=== PATIENT | male | born 1990 | race African-American/Black ===

== ENCOUNTER 2017-03-30 22:03 | Emergency (ER) | payer MEDICAID ==
[~2017-03-30] VITALS: Ht 182.9 cm; Wt 80.0 kg
[2017-03-30 22:33] VITALS: BP 145/100
[2017-03-31] MEDS ORDERED: METOCLOPRAMIDE HCL 10MG TABLET PO ONE (01:00)
== END 2017-03-31 01:51 | disposition home or self-care (01) ==
LOC: ER 03-31 01:10
DX: R09.81 Nasal congestion (principal); R51 Headache; R03.0 Elevated blood-pressure reading, without diagnosis of hypertension; J45.909 Unspecified asthma, uncomplicated; Z87.891 Personal history of nicotine dependence
CPT/HCPCS: 87804; 99284; J8597

== ENCOUNTER 2017-04-07 02:24 | Emergency (ER) | payer MEDICAID ==
[~2017-04-07] VITALS: Ht 182.9 cm; Wt 82.0 kg
[2017-04-07] MEDS ORDERED: HYDROCODONE/ACETAMINOPHEN 5/325MG TABLET PO ONE (06:45)
[2017-04-07] MEDS ORDERED: PHENYLEPHRINE 100MCG/ML 10ML VIAL (CATH LAB) IV PRN (07:45)
[2017-04-07 09:50] VITALS: BP 126/79
== END 2017-04-07 10:18 | disposition home or self-care (01) ==
LOC: ER 03:14
DX: N48.30 Priapism, unspecified (principal); F12.90 Cannabis use, unspecified, uncomplicated
CPT/HCPCS: 54220; 99284

== ENCOUNTER 2019-07-02 09:52 | Emergency (ER) | payer MEDICAID ==
[~2019-07-02] VITALS: Ht 180.3 cm; Wt 80.0 kg
[2019-07-02] MEDS ORDERED: ALBUTEROL 6.7GM HFA INHALER ORI PRN (10:45)
[2019-07-02] MEDS ORDERED: PREDNISONE 20MG TABLET PO ONE (10:45)
[2019-07-02 11:18] VITALS: BP 132/78
== END 2019-07-02 11:19 | disposition home or self-care (01) ==
LOC: ER 09:52
DX: R06.02 Shortness of breath (principal); Z20.828 Contact with and (suspected) exposure to other viral communicable diseases; I10 Essential (primary) hypertension
CPT/HCPCS: 71045; 94640; 99284; J7512; U0003; Z7610

== ENCOUNTER 2019-12-19 19:49 | Emergency (ER) | payer MEDICAID ==
[~2019-12-19] VITALS: Ht 182.9 cm; Wt 82.0 kg
[2019-12-19] MEDS ORDERED: PREDNISONE 20MG TABLET PO ONE (21:15)
[2019-12-19] MEDS ORDERED: ALBUTEROL (0.083%) 2.5MG/3ML NEB HHN ONE ×2 (21:15→22:45)
[2019-12-19 23:15] VITALS: BP 149/88
== END 2019-12-19 23:30 | disposition home or self-care (01) ==
LOC: ER 19:55
DX: J45.901 Unspecified asthma with (acute) exacerbation (principal); Z72.0 Tobacco use; F41.9 Anxiety disorder, unspecified; F12.10 Cannabis abuse, uncomplicated
CPT/HCPCS: 71046; 93005; 94640; 99283; J7512; Z7610